=== PATIENT | female | born 1965 | race African-American/Black ===

== ENCOUNTER 2022-03-24 15:31 | Emergency (ER) | payer OTHER ==
[~2022-03-24] VITALS: Ht 162.6 cm; Wt 66.0 kg
[2022-03-24] MEDS ORDERED: IBUP-2028 MT (16:30)
[2022-03-24] MEDS ORDERED: TOPUD PO (16:30)
[2022-03-24] MEDS ORDERED: METH-653 MT (16:30)
[2022-03-24] MEDS ORDERED: LIDO1ADH23 TP (16:30)
[2022-03-24] MEDS ORDERED: IBUPROFEN 400MG TABLET PO ONE (16:45)
[2022-03-24] MEDS ORDERED: ACETAMINOPHEN 325MG TABLET PO ONE (16:45)
[2022-03-24 17:43] VITALS: BP 142/88
== END 2022-03-24 17:44 | disposition home or self-care (01) ==
LOC: ER 15:31
DX: S46.912A Strain of unspecified muscle, fascia and tendon at shoulder and upper arm level, left arm, initial encounter (principal); S13.4XXA Sprain of ligaments of cervical spine, initial encounter; M54.2 Cervicalgia; I10 Essential (primary) hypertension; Z87.891 Personal history of nicotine dependence; V73.5XXA Driver of bus injured in collision with car, pick-up truck or van in traffic accident, initial encounter; Y93.89 Activity, other specified; Y92.520 Airport as the place of occurrence of the external cause
CPT/HCPCS: 99283